=== PATIENT | female | born 1955 | race Two or more races ===

== ENCOUNTER 2017-08-07 16:06 | Emergency (ER) | payer MEDICAID ==
[~2017-08-07] VITALS: Ht 157.5 cm; Wt 86.2 kg
[~2017-08-07 16:06] MED LIST: ASPI325T4 PO; METF-370 PO
[2017-08-07 16:21] VITALS: BP 164/75
[2017-08-07] MEDS ORDERED: ONDANSETRON HCL 4 MG/2 ML VIAL IM ONE (20:00)
[2017-08-07] MEDS ORDERED: HYDROmorphone HCL 2 MG/ML VL IM ONE (20:00)
== END 2017-08-08 02:20 | disposition home or self-care (01) ==
LOC: EDBD 16:06 → EDSEX 16:06 → ER 16:06
DX: S82.032A Displaced transverse fracture of left patella, initial encounter for closed fracture (principal); E11.22 Type 2 diabetes mellitus with diabetic chronic kidney disease; N18.9 Chronic kidney disease, unspecified; I12.9 Hypertensive chronic kidney disease with stage 1 through stage 4 chronic kidney disease, or unspecified chronic kidney disease; Z88.8 Allergy status to other drugs, medicaments and biological substances; Z88.0 Allergy status to penicillin; Z79.899 Other long term (current) drug therapy; W01.0XXA Fall on same level from slipping, tripping and stumbling without subsequent striking against object, initial encounter; Y93.89 Activity, other specified; Y92.89 Other specified places as the place of occurrence of the external cause; Y99.8 Other external cause status
CPT/HCPCS: 29505; 73562; 96372; 99284; J1170; J2405

== ENCOUNTER 2022-12-29 17:58 | Emergency (ER) | payer MEDICARE, MEDICAID ==
[~2022-12-29] VITALS: Ht 157.5 cm; Wt 76.0 kg
[2022-12-29] MEDS ORDERED: CEPH-510 PO ×2 (21:07→21:08)
[2022-12-29 21:32] VITALS: BP 134/69
== END 2022-12-29 21:33 | disposition home or self-care (01) ==
LOC: ER 17:58
DX: R04.0 Epistaxis (principal); N39.0 Urinary tract infection, site not specified; D68.9 Coagulation defect, unspecified; I12.0 Hypertensive chronic kidney disease with stage 5 chronic kidney disease or end stage renal disease; E11.22 Type 2 diabetes mellitus with diabetic chronic kidney disease; N18.6 End stage renal disease; Z99.2 Dependence on renal dialysis; Z90.49 Acquired absence of other specified parts of digestive tract; Z79.82 Long term (current) use of aspirin; Z79.899 Other long term (current) drug therapy; Z88.0 Allergy status to penicillin; Z88.8 Allergy status to other drugs, medicaments and biological substances